=== PATIENT | male | born 1970 | race Caucasian/White ===

== ENCOUNTER → 2016-11-21 | Outpatient (CLI) | payer OTHER ==
[~2016-11-21] MED LIST: CEPH500C PO; PRED50TA PO
[2016-11-21 13:01] LABS: BLOOD UREA NITROGEN 14 mg/dl (7-18); BUN/CREATININE RATIO 14.4 (10-20); CALCIUM 9.2 mg/dl (8.5-10.1); CARBON DIOXIDE 31 mmol/L (21-32); CHLORIDE 106 mmol/L (98-107); GLUCOSE 96 mg/dl (70-99); SODIUM 140 mmol/L (136-145)
[2016-11-21 13:04] LABS: CHOLESTEROL 197 mg/dl (0-200); CHOLESTEROL/HDL RATIO 3.8; HDL CHOLESTEROL 52 mg/dl; LDL CHOLESTEROL CALCULATED 119 mg/dl; TRIGLYCERIDES 129 mg/dl (0-150); VERY LOW DENSITY LIPOPROT CALC 26 mg/dl
== END | disposition home or self-care (01) ==
LOC: C.LABPBG 09:47
PROVIDERS: ATTEND Internal Medicine
DX: Z13.1 Encounter for screening for diabetes mellitus (principal); Z13.220 Encounter for screening for lipoid disorders

== ENCOUNTER → 2017-01-01 | Outpatient (CLI) | payer OTHER ==
--- NOTE | 2017-01-04 09:50 | POLYSOMNOGRAPH REPORT ---
SLEEP STUDY CLINICAL DATA: A 46-year-old male with BMI of 29.36, referred by Dr. Cain oTny for evaluation of possible sleep apnea. The patient has observed apnea and occasional daytime sleepiness. On the evening of 01/01/2017, a home sleep apnea test was performed using a [employer] type 3 monitor. RECORDING RESULTS: Total recording time was 9.3 hours. The patient monitoring time and estimated sleep time was 6 hours. RESPIRATORY DATA: Moderate sleep apnea was documented. The LON was 19.1. There were 49 obstructive, 7 mixed, and 4 central apneic episodes. There were 54 hypopneic episodes. The longest respiratory event was 43 seconds. No significant hypoxemia was seen. Oxygen matt was 87%. Mean saturation was 93%. Time below 89% was 2 minutes. HEART RATE DATA: Heart rate ranged from 32-52 beats per minute. SNORING DATA: Snoring was reported throughout the night. IMPRESSION: Moderate sleep apnea/hypopnea with a respiratory event index of 19.1. RECOMMENDATIONS: The patient may benefit from weight loss, use of an oral appliance, or a repeat sleep study with CPAP. Clinical correlation is needed. AISLINND
== END | disposition home or self-care (01) ==
LOC: C.NEUR 09:45
PROVIDERS: ATTEND Internal Medicine
DX: G47.30 Sleep apnea, unspecified (principal)